=== PATIENT | female | born 1985 | race Two or more races ===

== ENCOUNTER 2025-02-12 10:16 | Emergency (ER) | payer MEDICAID, SELFPAY ==
--- NOTE | 2025-02-12 | XR_ITS ---
Examination: MRI brain without intravenous contrast. Date and time of exam: February 12, 2025, 1435 hours INDICATIONS: Onset left-sided body numbness and headache beginning last night Technique: Multiple axial and sagittal images of the brain obtained. Siemens high-resolution 1.5 Cris short bore scanners utilized. Sagittal sections, T1-weighted, TR 500, TE 14, are performed. Axial sections proton-density and T2-weighted have been obtained. Inversion recovery axial images, TR 9, 260, TE 111, TI 2500. Diffusion weighted images, axial sections, TR 4800, TE 128, B value 1000 Axial sections, ADC map, TR 4800, TE 128 Findings: Enlargement of the sella turcica is not present. The optic chiasm and infundibular are not remarkable. Prepontine and interpeduncular cisterns are not enlarged. There is no localized enlargement of the medulla or suellne. Fourth ventricle and cerebellar tonsils appear normal in position. No subacute area of hemorrhage density is seen. Mass in the cerebellopontine angle region is not evident. Globes symmetrical. Orbital musculature including medial lateral rectus muscles do not exhibit abnormality. Diffusion-weighted images demonstrate no focus of restricted diffusion. Increased white matter signal evident, scattered punctate foci increased signal in the frontal white matter FLAIR image 20 Mass effect upon the ventricular system is not identified. Impression: Negative for acute hemorrhage or mass effect or midline shift Suspicious for demyelinating disease
[2025-02-12 10:18] VITALS: BMI 26.0
--- NOTE | 2025-02-12 10:22 | EKG_ITS ---
[facility] Test Date: 2025-02-12 Pat Name: BETTY GONZALEZ Department: Room: - Gender: Female Cruise Staff Member: : 1985 Requested By: John Samuel Order Number: [id number] Reading MD: John Samuel Measurements Intervals [place] Rate: 75 P: 56 AL: 144 QRS: 51 QRSD: 98 T: 43 QT: 405 QTc: 454 Interpretive Statements SINUS RHYTHM WITH SINUS ARRHYTHMIA No previous ECG available for comparison /store/S0/[id number]
[2025-02-12 10:26] VITALS: PULSE 68
--- NOTE | 2025-02-12 10:26 | XR_ITS ---
Examination: CTA carotids with intravenous contrast CTA brain, head with intravenous contrast. 2-D sagittal, coronal reconstructions. 3-D reconstructions. Exam date and time: February 12, 2025, 1035 hours INDICATIONS: Stroke alert, onset left arm numbness, focal neurologic deficit beginning 1 hour ago CTDI: vol (mGy) 14.4 DLP: (mGycm) 414 Technique: Multiple CTA axial brain, head carotid images post intravenous contrast injection 75 cc, Isovue-370. 2-D sagittal, coronal reconstructions. 3-D reconstructions, 3-D post processing including vascular maximum intensity projection images. Low dose protocols were performed. One or more of the following dose reduction techniques were used; automated exposure control, adjustment of the mA and/or KV according to patient size, use of iterative reconstruction technique. Findings: No significant common carotid carotid bifurcation or internal carotid artery stenoses Dominant left vertebral artery in the neck with no significant stenoses Intracranial vertebral arteries basilar artery posterior cerebral branches fill with no large vessel occlusions M1 segments middle cerebral arteries middle cerebral artery trifurcation vessels and anterior cerebral arteries demonstrate no large vessel occlusions IMPRESSION: No significant neck arterial stenoses No cerebral large vessel arterial occlusions or thrombus
--- NOTE | 2025-02-12 10:26 | XR_ITS ---
Examination: CT brain head without contrast. 2-D sagittal coronal reconstructions Date and time of exam: February 12, 2025, 1031 hours INDICATIONS: Stroke alert, onset left arm numbness beginning 1 hour ago CTDI: vol (mGy): 46.7 DLP: (mGycm): 858 Technique: Multiple CT axial sections of the brain have been obtained, 5 mm slice thickness. Contrast has not been administered. 2-D sagittal, coronal reconstructions have been obtained Low dose protocols were performed. One or more of the following dose reduction techniques were used; automated exposure control, adjustment of the mA and/or KV according to patient size, use of iterative reconstruction technique. Findings: No significant ventricular enlargement. Intra-axial or extra-axial hemorrhage density is not seen. No mass effect or midline shift Basal cisterns are not remarkable. Fourth ventricle is midline. Cranial vault intact. Impression: Negative for acute hemorrhage, mass effect or midline shift
[2025-02-12 10:30] VITALS: BP 137/82; PULSE 76; RESP 14; O2SAT 98
--- NOTE | 2025-02-12 10:37 | PD.EDHA ---
ED Headache RME/HPI General Chief Complaint: Neuro Symptoms/Deficit Stated Complaint: LEFT ARM NUMBNESS AT 09, TONY SINCE LAST NIGHT Time Seen by Provider: 02/12/25 10:25 Arrival date/time: 02/12/25 10:16 Limitations: no limitations RME / HPI RME / HPI Narrative: 39 year old female with history of migraine headaches presents to the ED for evaluation of headache beginning last night and left arm numbness and heaviness beginning at 09:00 AM today. States her headache is similar to previous migraine headaches. However, the left arm numbness and heaviness is new which concerned her. Patient mentioned she gets headaches about once to twice a month and are improved with OTC pain medications. No blood thinner use. No other associated symptoms or complaints. Last known well at 09:00 AM today 02/12/2025. Related Data Home Medications ?Medication ?Instructions ?Recorded ?Confirmed fluconazole 200 mg tablet 200 mg PO QDAY 03/08/19 03/16/22 Previous Rx's ?Medication ?Instructions ?Recorded ibuprofen 600 mg tablet 600 mg PO Q6H PRN pain #20 tabs 03/09/19 ibuprofen 800 mg tablet 800 mg PO Q8H PRN pain #30 tabs 03/16/22 Allergies Allergy/AdvReac Type Severity Reaction Status Date / Time No Known Allergies Allergy Verified 02/12/25 10:19 Review of Systems Review of Systems Systems Reviewed: All systems reviewed, normal except as documented Past Medical History Past Medical History NEUROLOGIC: Positive Neurological Disorders and Migraine (POSSIBLE) REPRODUCTIVE: Positive Previous Pregnancies (X4) MUSCULOSKELETAL: Positive Musculoskeletal Disorders and Scoliosis OTHER HISTORY: Positive Chicken Pox Family History FAMILY HISTORY: Positive Family Cardiac Disorders (PARENTS- HTN) Surgical History SURGICAL: Positive Tubal Ligation Social History SMOKING STATUS: Never smoker SECOND HAND EXPOSURE: No ED Exam General Limitations: Present no limitations General appearance: Present alert and in no apparent distress Head Head exam: Present atraumatic, normocephalic and normal inspection Eye Eye exam: Present normal appearance, PERRL and EOMI ENT ENT exam: Present normal exam, normal oropharynx and mucous membranes moist Neck Neck exam: Present normal inspection, full ROM and trachea midline Chest Chest inspection: Present normal inspection and symmetric chest wall rise Respiratory Respiratory exam: Present normal lung sounds bilaterally Cardiovascular Cardiovascular exam: Present regular rate, normal rhythm and normal heart sounds Abdominal Exam Abdominal exam: Present soft and normal bowel sounds Extremities Exam Extremities exam: Present normal inspection and full ROM Back Exam Back exam: Present normal inspection and full ROM Neurological Exam Neurological exam: Present alert, oriented X3, CN II-XII intact and other (Patient had decreased sensation of the left arm mid bicep down to wrist both dorsal and volar sides. ) Psychiatric Psychiatric exam: Present normal affect and normal mood Skin Skin exam: Present warm, dry, intact and normal color Course Quality Measures Suspected type of Stroke: Non Acute Last known well (date): 02/12/25 Last known well (time): 09:00 Tenecteplase given: Reason(s) TPA not given: Stroke severity too mild (non-disabling) (symptoms improving and most likely due to migraine ) not given stroke Orders Category Date Time Status Bedside Blood Glucose NOW Care 02/12/25 10:26 Active Tentering Machine Feeder NOW Care 02/12/25 10:26 Active Continuous Pulse Oximetry NOW Care 02/12/25 10:26 Completed EKG (ED ONLY) *Do not use* NOW Care 02/12/25 10:22 Completed Insert IV NOW Care 02/12/25 10:26 Active MRI Screening NOW Care 02/12/25 10:56 Active MRI Screening NOW Care 02/12/25 14:31 Active NIH Stroke Scale now Care 02/12/25 10:26 Active NPO NOW Care 02/12/25 10:26 Active Neuro Check Q15MIN Care 02/12/25 10:26 Active Nurse Swallow Screen x1 Care 02/12/25 10:26 Active Consult to Neurology / Tele-Neurology Routine Cons 02/12/25 10:[address] angio stroke protocol Stat Exams 02/12/25 10:[address] stroke protocol Stat Exams 02/12/25 10:26 Completed EKG (ED Only) Stat Exams 02/12/25 10:22 Draft MR head/brain wo con Stat Exams 02/12/25 Completed Alcohol, Blood Medical Stat Lab 02/12/25 10:27 Completed B-Type Natriuretic Peptide Stat Lab 02/12/25 10:27 Completed CBC Stat Lab 02/12/25 10:27 Completed Comprehensive Metabolic Panel Stat Lab 02/12/25 10:27 Completed Drug Screen,Urine Stat Lab 02/12/25 10:26 Ordered Magnesium Stat Lab 02/12/25 10:27 Completed Partial Thromboplastin Time Stat Lab 02/12/25 10:27 Completed Prothrombin Time with INR Stat Lab 02/12/25 10:27 Completed Troponin I Stat Lab 02/12/25 10:27 Completed UA, C/S IF [Urinalysis, C/S if Indicated] Stat Lab 02/12/25 10:27 Ordered Sodium Chloride 0.9% 1000 ml [Ns] 1,000 ml Med 02/12/25 10:30 Active IV Q10H Vital Signs Vital signs: Vital Signs Pulse Rate 68 02/12/25 10:26 Headache MDM Narrative MDM Narrative:: Karol Porter am scribing for and in the presence of Dr. Patel. Patient presented to the ER with headache and left arm numbness. Head CT was negative for acute hemorrhage. Head/neck CTA was negative for occlusions or thrombus or arterial stenosis. The brain MRI was negative for acute hemorrhage or mass effect or midline shift and suspicious for demyelinating disease. The patient was advised to follow up with PCP for referral to see a neurologist for the suspicious for demyelinating disease findings on MRI. Patient data External records reviewed:: [facility] previous records Clinical information provided by:: patient Social determinants that could affect healthcare access:: none Patient has the following chronic illnesses:: Migraine headaches How is presenting disease/condition affected by chronic disease/condition?: exacerbated by Evaluation data The following diagnostics were reviewed and interpreted by me:: lab results, radiology exam(s) and EKG tracing(s) (EKG @ 10:48 AM. Normal sinus rhythm with sinus arrythmia, rate 75, no STEMI. ) Lab and/or radiology exams considered but not ordered:: None Interpretation Summary: Ordering Physician: John Patel MD Date of Service: 02/12/25 Procedure(s): CT stroke protocol Accession Number(s): [id number] cc: John Patel MD; Leonardo Saez MD~ Examination: CT brain head without contrast. 2-D sagittal coronal reconstructions Date and time of exam: February 12, 2025, 1031 hours INDICATIONS: Stroke alert, onset left arm numbness beginning 1 hour ago CTDI: vol (mGy): 46.7 DLP: (mGycm): 858 Technique: Multiple CT axial sections of the brain have been obtained, 5 mm slice thickness. Contrast has not been administered. 2-D sagittal, coronal reconstructions have been obtained Low dose protocols were performed. One or more of the following dose reduction techniques were used; automated exposure control, adjustment of the mA and/or KV according to patient size, use of iterative reconstruction technique. Findings: No significant ventricular enlargement. Intra-axial or extra-axial hemorrhage density is not seen. No mass effect or midline shift Basal cisterns are not remarkable. Fourth ventricle is midline. Cranial vault intact. Impression: Negative for acute hemorrhage, mass effect or midline shift Dictated By: Leonardo Saez MD Signed By: <Electronically signed by Leonardo Saez MD in OV> 02/12/25 1034 Ordering Physician: John Patel MD Date of Service: 02/12/25 Procedure(s): CT angio stroke protocol Accession Number(s): [id number] cc: John Patel MD; Leonardo Saez MD~ Examination: CTA carotids with intravenous contrast CTA brain, head with intravenous contrast. 2-D sagittal, coronal reconstructions. 3-D reconstructions. Exam date and time: February 12, 2025, 1035 hours INDICATIONS: Stroke alert, onset left arm numbness, focal neurologic deficit beginning 1 hour ago CTDI: vol (mGy) 14.4 DLP: (mGycm) 414 Technique: Multiple CTA axial brain, head carotid images post intravenous contrast injection 75 cc, Isovue-370. 2-D sagittal, coronal reconstructions. 3-D reconstructions, 3-D post processing including vascular maximum intensity projection images. Low dose protocols were performed. One or more of the following dose reduction techniques were used; automated exposure control, adjustment of the mA and/or KV according to patient size, use of iterative reconstruction technique. Findings: No significant common carotid carotid bifurcation or internal carotid artery stenoses Dominant left vertebral artery in the neck with no significant stenoses Intracranial vertebral arteries basilar artery posterior cerebral branches fill with no large vessel occlusions M1 segments middle cerebral arteries middle cerebral artery trifurcation vessels and anterior cerebral arteries demonstrate no large vessel occlusions IMPRESSION: No significant neck arterial stenoses No cerebral large vessel arterial occlusions or thrombus Dictated By: Leonardo Saez MD Signed By: <Electronically signed by Leonardo Saez MD in OV> 02/12/25 1100 Ordering Physician: John Patel MD Date of Service: 02/12/25 Procedure(s): MR head/brain wo con Accession Number(s): [id number] cc: John Patel MD; Wiley Salcedo MD; Leonardo Saez MD~ Examination: MRI brain without intravenous contrast. Date and time of exam: February 12, 2025, 1435 hours INDICATIONS: Onset left-sided body numbness and headache beginning last night Technique: Multiple axial and sagittal images of the brain obtained. Siemens high-resolution 1.5 Cris short bore scanners utilized. Sagittal sections, T1-weighted, TR 500, TE 14, are performed. Axial sections proton-density and T2-weighted have been obtained. Inversion recovery axial images, TR 9, 260, TE 111, TI 2500. Diffusion weighted images, axial sections, TR 4800, TE 128, B value 1000 Axial sections, ADC map, TR 4800, TE 128 Findings: Enlargement of the sella turcica is not present. The optic chiasm and infundibular are not remarkable. Prepontine and interpeduncular cisterns are not enlarged. There is no localized enlargement of the medulla or suellen. Fourth ventricle and cerebellar tonsils appear normal in position. No subacute area of hemorrhage density is seen. Mass in the cerebellopontine angle region is not evident. Globes symmetrical. Orbital musculature including medial lateral rectus muscles do not exhibit abnormality. Diffusion-weighted images demonstrate no focus of restricted diffusion. Increased white matter signal evident, scattered punctate foci increased signal in the frontal white matter FLAIR image 20 Mass effect upon the ventricular system is not identified. Impression: Negative for acute hemorrhage or mass effect or midline shift Suspicious for demyelinating disease Dictated By: Leonardo Saez MD Signed By: <Electronically signed by Leonardo Saez MD in OV> 02/12/25 1516 Medications / Prescriptions Medications or Prescriptions considered but not ordered:: None Medication administrations:: Medication Administration History Sodium Chloride (Ns) 1,000 mls @ 50 mls/hr IV Q10H EVA Stop: 03/14/25 10:29 Last Admin: 02/12/25 11:00 Dose: 50 mls/hr Documented By: TM See above Consultations Consultation(s) initiated? (list below): Yes Consultation #1 (Physician, Specialty, Details): I spoke with teleneurologist Dr. Salguero, states patient is not a TNK candidate. Symptoms are likely migrainous aura versus less likely acute stroke. Time: 10:55 Diagnosis Differential diagnosis headache: migraine, subarachnoid hemorrhage and headache Most likely diagnosis given after review of the tests above:: Headache Left arm numbness Admission Indicated Admission indicated?: not indicated Admission Request Was there a request for admission?: No Disposition Plan Disposition Plan: Discharge Discharge Attestation Discharge Attestation: The patient and all family members were given an opportunity to ask questions and understood the discharge instructions. Discharge instructions specifically effects, indications for sooner follow up or return to the emergency department, and the expected course of current diagnosis. Patient condition: Stable Discharge Plan Plan Patient Disposition: HOME (Self Care) Prescriptions/Referrals Prescriptions/Med Rec: No Action ibuprofen 800 mg tablet 800 mg PO Q8H PRN (Reason: pain) Qty: 30 1RF fluconazole 200 mg Tablet 200 mg PO QDAY ibuprofen 600 mg tablet 600 mg PO Q6H MDD 6 PRN (Reason: pain) Qty: 20 0RF Referrals: Wiley Salcedo MD [Primary Care Provider, Family Practice] - In 1 week Problem List Clinical Impression: Numbness and tingling in left arm, Headache, Left arm numbness Patient/Caregiver Discharge Instructions Education Materials: Self-Care for Headaches, ED Paraesthesias Additional Instructions: Follow-up with your primary care doctor in 1-2 days for referral to see a neurologist. You can return to the emergency department sooner if symptoms worsen or if you notice any new, concerning issues. Print Language: Vietnamese Stand Alone Forms: Jacey Award Info., Patient Portal Info Letter
[2025-02-12 10:48] LABS: Basophils # (Auto) 0.0 Thou/mm3 (0.0-0.2); Basophils % (Auto) 0 % (0-2.5); Eosinophils # (Auto) 0.1 Thou/mm3 (0.0-0.5); Eosinophils % (Auto) 1 % (0-10); Hematocrit 43.2 % (36.0-46.0); Hemoglobin 14.4 g/dL (12.0-16.0); Immature Granulocytes Auto 0.01 Thou/mm3 (0.00-0.00); Lymphocytes # (Auto) 3.4 Thou/mm3 (1.0-4.8); Lymphocytes % (Auto) 41 % (10-50); Mean Corpuscular HGB Conc 33.3 g/dl (31.0-37.0); Mean Corpuscular Hemoglobin 32.4 pg (25.0-35.0); Mean Corpuscular Volume 97 fL (80-100); Monocytes # (Auto) 0.6 Thou/mm3 (0.0-0.8); Monocytes % (Auto) 7 % (0-12); Neutrophils # (Auto) 4.3 Thou/mm3 (1.8-7.7); Neutrophils % (Auto) 51 % (37-80); Nucleated Red Blood Cell # 0.00 Thou/mm3 (0.00-0.00); Nucleated Red Blood Cell % 0 /100 WBC (0); Platelet Count 186 Thou/mm3 (140-440); RDW Standard Deviation 42.3 fL (36.4-46.3); Red Blood Count 4.44 Miln/mm3 (4.00-5.20); White Blood Count 8.5 Thou/mm3 (3.6-11.0)
[2025-02-12 10:53] VITALS: BP 124/75; PULSE 80; RESP 14; TEMP 36.6; O2SAT 98
[2025-02-12 10:56] LABS: INR 1.0 (0.9-1.3); Partial Thromboplastin Time 29.1 Seconds (22.0-36.0); Prothrombin Time 10.5 Seconds (9.0-12.2)
--- NOTE | 2025-02-12 10:58 | PD.TNEURO ---
Tele Neuro Consultation Consultation Date 02/12/25 Most Recent Vital Signs Last Vital Signs Temp 98 F 02/12/25 10:53 Pulse 80 02/12/25 10:53 Resp 14 02/12/25 10:53 BP 124/75 02/12/25 10:53 Pulse Ox 98 02/12/25 10:53 O2 Del Method Room Air 02/12/25 10:53 Laboratory-Coagulation Panel PT 10.5 Seconds (9.0-12.2) 02/12/25 10:27 INR 1.0 (0.9-1.3) 02/12/25 10: APTT 29.1 Seconds (22.0-36.0) 02/12/25 10:27 Consultation Narrative [facility] Patient Name: nam Lala Date of : 1985 Identification Number: Date of Service: 02/12/2025 10:25:20 Diagnosis: ? G43.819 - Other migraine, intractable, without status migrainosus Impression: ? 39-year-old female history of migraines, who I am seeing as a stroke alert for headache and left arm numbness. Patient being seen for migraine headache starting last night and continuing into this morning, left arm numbness starting at 9 AM. Neuroexam showing patient alert, oriented able to follow commands, moving all 4 extremities without drift, left arm with slightly decreased sensation but can feel touch. CT head negative for acute process. CT angiogram negative for large vessel occlusion. At this time, suspect likely migrainous aura versus less likely acute stroke. Would treat with migraine abortives and obtain MRI brain noncontrast as this is the first time she has had numbness with her migraines and will need to rule out vascular process.Will hold on giving thrombolytic as patient's symptoms currently nondisabling and improving. Our recommendations are outlined below. Recommendations: ? Neuro Checks (Q4) ? - MRI brain non contrast ? - Migraine abortivesl: toradol, IV magnesium 2 gms Sign Out: ? Discussed with Emergency Department Provider Advanced Imaging: CTA Head and Neck Completed. LVO:No Patient is not a candidate for EDDIE Metrics: Last Known Well: 02/12/2025 09:00:00 Dispatch Time: 02/12/2025 10:25:20 Arrival Time: 02/12/2025 10:25:00 Initial Response Time: 02/12/2025 10:26:50 Symptoms: TONY , L arm numbness. Initial patient interaction: 02/12/2025 10:29:11 NIHSS Assessment Completed: 02/12/2025 10:29:13 Patient is not a candidate for Thrombolytic. Thrombolytic Medical Decision: 02/12/2025 10:29:13 Patient was not deemed candidate for Thrombolytic because of following reasons: Resolved symptoms . CT Head: I personally reviewed all the CT images that were available to me and it showed: no acute process Primary Provider Notified of Diagnostic Impression and Management Plan on: 02/12/2025 10:54:59 History of Present Illness: Patient is a 39 year old Female. Patient was brought by private transportation with symptoms of TONY , L arm numbness. 39-year-old female history of migraines, who I am seeing as a stroke alert for headache and left arm numbness. Patient states that last night she had a bad headache and this morning on waking she had a bad headache to but around 9 AM she began to have left arm numbness and heaviness. She denies any numbness in her face or her left leg, no speech difficulty or vision changes. Currently she states that the left arm symptoms are resolving, she does not have a headache anymore. She states that she does get migraines approximately twice a month and just takes [id number] NSAID for it. She has never had neurologic symptoms with her migraines in the past. Mother has migraines.She denies history of hypertension, diabetes. She is not on any blood thinners currently Medications: No Anticoagulant use No Antiplatelet use Reviewed EMR for current medications Allergies: Reviewed Social History: Smoking: No Family History: There is no family history of premature cerebrovascular disease pertinent to this consultation ROS : 14 Points Review of Systems was performed and was negative except mentioned in HPI. Past Surgical History: There Is No Surgical History Contributory To Today?s Visit Examination: BP(137/82), Pulse(77), 1A: Level of Consciousness - Alert; keenly responsive + 0 1B: Ask Month and Age - Both Questions Right + 0 1C: Blink Eyes & Squeeze Hands - Performs Both Tasks + 0 2: Test Horizontal Extraocular Movements - Normal + 0 3: Test Visual Larsen - No Visual Loss + 0 4: Test Facial Palsy (Use Grimace if Obtunded) - Normal symmetry + 0 5A: Test Left Arm Motor Drift - No Drift for 10 Seconds + 0 5B: Test Right Arm Motor Drift - No Drift for 10 Seconds + 0 6A: Test Left Leg Motor Drift - No Drift for 5 Seconds + 0 6B: Test Right Leg Motor Drift - No Drift for 5 Seconds + 0 7: Test Limb Ataxia (FNF/Heel-Umanzor) - No Ataxia + 0 8: Test Sensation - Mild-Moderate Loss: Less Sharp/More Dull + 1 9: Test Language/Aphasia - Normal; No aphasia + 0 10: Test Dysarthria - Normal + 0 11: Test Extinction/Inattention - No abnormality + 0 NIHSS Score: 1 Pre-Morbid Modified [place] Scale: Unable to assess Spoke with : Dr Patel This consult was conducted in real time using interactive audio and video technology. Patient was informed of the technology being used for this visit and agreed to proceed. Patient located in hospital and provider located at home/office setting. Patient is being evaluated for possible acute neurologic impairment and high probability of imminent or life-threatening deterioration. I spent total of 35 minutes providing care to this patient, including time for face to face visit via telemedicine, review of medical records, imaging studies and discussion of findings with providers, the patient and/or family. Dr Porfirio Salguero [facility] For Inpatient follow-up with [facility] physician please call [facility] at . As we are not an outpatient service for any post hospital discharge needs please contact the hospital for assistance. If you have any questions for the [facility] physicians or need to reconsult for clinical or diagnostic changes please contact us via [facility] at . Non-radiologist review of imaging performed to assist with emergent clinical decision-making. Remote physician workstations do not possess the same resolution, calibration, or diagnostic capabilities as hospital-based radiology reading stations, and formal radiologist read is necessary. Signature : Porfirio Salguero
[2025-02-12] MEDS: SODIUM CHLORIDE 0.9% 1000 ML 1,000 ML 50 ML IV (11:00)
[2025-02-12 11:30] LABS: Alanine Aminotransferase 56 U/L (10-49); Albumin, Serum 5.3 gm/dL (3.5-5.0); Albumin/Globulin Ratio 1.5 (1.2-2.2); Alcohol, Blood Medical < 3.0 mg/dL (0-10.0); Alkaline Phosphatase 84 U/L (46-116); Anion Gap 10 (7-16); Aspartate Amino Transferase 38 U/L (0-34); BUN/Creatinine Ratio 14 Ratio (12-20); Bilirubin,Total 0.5 mg/dL (0.3-1.2); Blood Urea Nitrogen 11 mg/dL (9-23); Calcium 9.8 mg/dL (8.3-10.6); Calcium (Corrected) 9.8 mg/dL (8.5-10.1); Carbon Dioxide 27.2 mMol/L (20.0-31.0); Chloride 102 mMol/L (98-107); Creatinine (Component) 0.8 mg/dL (0.6-1.3); Estimated Creatinine Clearance 81.7 mL/min (>60); Globulin 3.6 gm/dL (2.3-3.5); Glucose 90 mg/dL (74-106); Magnesium 2.1 mg/dL (1.6-2.6); Osmolality,Calculated 276 (275-295); Potassium 3.8 mMol/L (3.4-5.1); Sodium 139 mMol/L (136-145); Total Protein 8.9 gm/dL (5.7-8.2); Troponin I < 0.002 ng/mL (0.0-0.045); eGFR > 60 See Note
[2025-02-12 11:53] VITALS: BP 106/72; PULSE 65; RESP 16; TEMP 36.8; O2SAT 96
[2025-02-12 12:07] LABS: B-Type Natriuretic Peptide < 20 pg/mL (0-100)
[2025-02-12 14:23] VITALS: BP 119/75; PULSE 67; RESP 18; TEMP 36.8; O2SAT 96
[2025-02-12 15:42] LABS: Collection Type, Urine Clean Catch
[2025-02-12 15:53] LABS: Amphetamine/Methamp Scrn,U Negative (Negative); Barbiturate Screen,Urine Negative (Negative); Benzodiazepines Screen,Urine Negative (Negative); Benzoylecgonine Screen, Ur Negative (Negative); Fentanyl Screen,Urine Negative (Negative); Opiate Screen,Urine Negative (Negative); THC Screen,Urine Negative (Negative)
[2025-02-12 16:15] LABS: Bilirubin,Urine Negative (Negative); Blood,Urine Negative (Negative); Clarity,Urine Clear (Clear/Hazy); Color,Urine Colorless (Lt Yel-Yel); Glucose, Urine Negative (Negative); Ketones,Urine Negative (Negative); Leukocyte Esterase,Urine Positive (Negative); Nitrite,Urine Negative (Negative); PH,Urine 7.5 (5.0-7.0); Protein,Urine Negative (Neg - Trace); RBC,Urine 3 /hpf (0-3); Squamous Epithelial Cell,Urine 4 /hpf (0-5); Urobilinogen,Urine Negative mg/dL (0.0-1.0); WBC,Urine 11 /hpf (0-5)
[2025-02-12 16:22] LABS: Culture Indicated,Urine Yes; Specific Gravity,Urine 1.010 (1.001-1.035)
== END 2025-02-12 16:04 | disposition home or self-care (01) ==
PROVIDERS: Emergency Provider Family Medicine; PCP Family Medicine
DX: G43.819 Other migraine, intractable, without status migrainosus (principal)
CPT/HCPCS: 36415; 70450; 70496; 70498; 70551; 80053; 80307; 80320; 81001; 83735; 83880; 84484; 85025; 85610; 85730; 87077; 87086; 87186; 93005; 99285; A4649; J7030; Q9967; G0480